=== PATIENT | male | born 1980 | race Hispanic/Latino ===

== ENCOUNTER 2021-10-22 13:48 | Emergency (ER) | payer MEDICARE ==
[~2021-10-22] VITALS: Ht 157.5 cm; Wt 54.4 kg
[2021-10-22 14:17] LABS: BASOPHILS % (AUTO) 0.4 % (0.0-5.0); HEMATOCRIT 32.4 % (42-54); LYMPHOCYTES % (AUTO) 21.7 % (21.0-51.0); MEAN CORPUSCULAR HEMOGLOBIN 24.5 pg (27.0-33.0); MEAN CORPUSCULAR HGB CONC 33.3 g/dL (32.0-36.0); MEAN CORPUSCULAR VOLUME 73.6 fL (79-99); MONOCYTES % (AUTO) 12.8 % (3.0-13.0); NEUTROPHILS % (AUTO) 64.7 % (40.0-77.0); PLATELET COUNT (AUTO) 219 K/uL (130-400); RED CELL DISTRIBUTION WIDTH 13.1 % (11.0-15.5); WHITE BLOOD COUNT (AUTO) 2.3 K/uL (4.8-10.8)
[2021-10-22 14:35] LABS: ALBUMIN 3.2 g/dL (3.5-5.0); BILIRUBIN,TOTAL 0.5 mg/dL (0.2-1.0); CREATININE 0.9 mg/dL (0.5-1.5); POTASSIUM 4.1 mmol/L (3.5-5.1); TOTAL PROTEIN, SERUM 7.2 g/dL (6.0-8.3)
[2021-10-22 14:58] LABS: BAND NEUTROPHILS % (MANUAL) 2 % (0-2); LYMPHOCYTES % (MANUAL) 17 % (22-44); MAN.DIFF COMMENT-IMPRESSION MANUAL DIFFERENTIAL; MONOCYTES % (MANUAL) 12 % (2-9); PLATELET MORPHOLOGY COMMENT ADEQUATE; REACTIVE LYMPHOCYTES 1 % (0-0); SEGMENTED NEUTROPHILS % 68 % (40-70)
[2021-10-22] MEDS ORDERED: INSULIN HUMULIN R 100 UNIT/ML 3ML IV ONE (15:00)
[2021-10-22] MEDS ORDERED: 0.9%NACL 1000ML 1,000 ML IV ONE (15:00)
[2021-10-22 15:17] LABS: APPEARANCE,URINE Clear (CLEAR); BILIRUBIN,URINE Negative (NEGATIVE); COLOR,URINE Yellow (YELLOW); GLUCOSE, URINE (UA) >=1000 mg/dL (NEGATIVE); KETONES,URINE 15 mg/dL (NEGATIVE); LEUKOCYTE ESTERASE ,URINE Negative (NEGATIVE); NITRATE,URINE Negative (NEGATIVE); OCCULT BLOOD,URINE Moderate (NEGATIVE); PROTEIN,URINE POS 1+ mg/dL (NEGATIVE); UROBILINOGEN,URINE 0.2 mg/dL (0.2-1.0)
[2021-10-22 15:24] LABS: AMPHET/METH SCREEN,URINE NEGATIVE (NEGATIVE); BARBITURATE SCREEN, URINE NEGATIVE (NEGATIVE); BENZODIAZEPINES SCREEN,URINE NEGATIVE (NEGATIVE); CANNABINOID SCREEN,URINE NEGATIVE (NEGATIVE); COCAINE SCREEN,URINE POSITIVE (NEGATIVE); OPIATE SCREEN,URINE NEGATIVE (NEGATIVE); PHENCYCLIDINE SCREEN,URINE NEGATIVE (NEGATIVE)
[2021-10-22] MEDS ORDERED: LORAZEPAM 2 MG/ML 1 ML VIAL IVP ONE (15:30)
[2021-10-22 15:35] VITALS: BP 152/96
[2021-10-22 15:56] LABS: BACTERIA,URINE None Seen /HPF (None Seen); RBC,URINE None Seen /HPF (0-1); SQUAMOUS EPITHELIAL CELL,UR None Seen /HPF (0-2); WBC,URINE 0-1 /HPF (0-1)
== END 2021-10-22 16:26 | disposition home or self-care (01) ==
LOC: EDH 13:48
DX: B34.9 Viral infection, unspecified (principal); D64.9 Anemia, unspecified; E86.0 Dehydration; I95.1 Orthostatic hypotension; F14.10 Cocaine abuse, uncomplicated; E11.9 Type 2 diabetes mellitus without complications; F31.9 Bipolar disorder, unspecified; F43.10 Post-traumatic stress disorder, unspecified
CPT/HCPCS: 36415; 71045; 80053; 80305; 81001; 82010; 82948; 83605; 84484 ×2; 85025; 96361; 96374; 96375; 99284; J1815; J2060; J7030

== ENCOUNTER 2021-10-24 16:34 | Emergency (ER) | payer MEDICARE ==
[~2021-10-24] VITALS: Ht 160 cm; Wt 54.4 kg
[2021-10-24 16:35] VITALS: BP 129/89
== END 2021-10-24 18:54 | disposition left against medical advice (07) ==
LOC: EDH 16:34
DX: R07.89 Other chest pain (principal); Z53.21 Procedure and treatment not carried out due to patient leaving prior to being seen by health care provider
CPT/HCPCS: 93005

== ENCOUNTER 2021-10-25 16:10 | Emergency (ER) | payer MEDICARE ==
[2021-10-25] MEDS ORDERED: PANTOPRAZOLE 40 MG/VIAL IVP ONE (17:00)
[2021-10-25 17:28] LABS: BASOPHILS % (AUTO) 0.6 % (0.0-5.0); EOSINOPHILS % (AUTO) 0.6 % (0.0-8.0); HEMATOCRIT 35.5 % (42-54); LYMPHOCYTES % (AUTO) 40.5 % (21.0-51.0); MEAN CORPUSCULAR HEMOGLOBIN 24.5 pg (27.0-33.0); MEAN CORPUSCULAR HGB CONC 34.4 g/dL (32.0-36.0); MEAN CORPUSCULAR VOLUME 71.3 fL (79-99); PLATELET COUNT (AUTO) 230 K/uL (130-400); RED BLOOD CELL COUNT(AUTO) 4.98 MIL/uL (4.50-6.20); RED CELL DISTRIBUTION WIDTH 12.7 % (11.0-15.5); WHITE BLOOD COUNT (AUTO) 3.4 K/uL (4.8-10.8)
[2021-10-25 17:39] LABS: CREATININE 0.7 mg/dL (0.5-1.5); POTASSIUM 3.6 mmol/L (3.5-5.1)
[2021-10-25 17:44] VITALS: BP 156/94
[2021-10-25 18:00] LABS: ALBUMIN 3.1 g/dL (3.5-5.0); BILIRUBIN,TOTAL 0.6 mg/dL (0.2-1.0)
== END 2021-10-25 18:15 | disposition home or self-care (01) ==
LOC: EDH 16:10
DX: R07.89 Other chest pain (principal); B34.9 Viral infection, unspecified; E11.9 Type 2 diabetes mellitus without complications; I10 Essential (primary) hypertension; E03.9 Hypothyroidism, unspecified; F43.10 Post-traumatic stress disorder, unspecified
CPT/HCPCS: 36415; 80053; 84484; 85025; 93005; 96374; 99284; C9113

== ENCOUNTER 2022-11-28 09:43 | Emergency (ER) | payer MEDICARE ==
[~2022-11-28] VITALS: Ht 157.5 cm; Wt 43.5 kg
[2022-11-28 09:58] VITALS: BP 154/94
[2022-11-28 10:14] LABS: BASOPHILS % (AUTO) 0.2 % (0.0-5.0); EOSINOPHILS % (AUTO) 1.5 % (0.0-8.0); HEMATOCRIT 21.3 % (42-54); LYMPHOCYTES % (AUTO) 8.9 % (21.0-51.0); MEAN CORPUSCULAR HEMOGLOBIN 23.5 pg (27.0-33.0); MEAN CORPUSCULAR HGB CONC 31.5 g/dL (32.0-36.0); MEAN CORPUSCULAR VOLUME 74.7 fL (79-99); MONOCYTES % (AUTO) 3.8 % (3.0-13.0); PLATELET COUNT (AUTO) 280 K/uL (130-400); RED BLOOD CELL COUNT(AUTO) 2.85 MIL/uL (4.50-6.20); WHITE BLOOD COUNT (AUTO) 5.3 K/uL (4.8-10.8)
[2022-11-28 10:18] LABS: APPEARANCE,URINE CLEAR (CLEAR); BILIRUBIN,URINE NEGATIVE (NEGATIVE); COLOR,URINE LIGHT-YELLOW (YELLOW); GLUCOSE, URINE (UA) 200 mg/dL (NEGATIVE); KETONES,URINE NEGATIVE (NEGATIVE); LEUKOCYTE ESTERASE ,URINE 250 Leu/uL (NEGATIVE); NITRATE,URINE NEGATIVE (NEGATIVE); OCCULT BLOOD,URINE LARGE (NEGATIVE); PH,URINE 6.5 (5.0-8.0); PROTEIN,URINE 50 mg/dL (NEGATIVE); UROBILINOGEN,URINE 0.2 mg/dL (0.2-1.0)
[2022-11-28 10:26] LABS: MUCUS,URINE RARE LPF (None Seen); RBC,URINE 26-50 /HPF (0-1); SQUAMOUS EPITHELIAL CELL,UR RARE /HPF (0-2)
[2022-11-28] MEDS ORDERED: MACR100 PO (10:26)
[2022-11-28] MEDS ORDERED: CEFTRIAXONE 1G VIAL ONE (10:28)
[2022-11-28] MEDS ORDERED: CEFTRIAXONE 1G VIAL IM ONE (10:30)
[2022-11-28 10:41] LABS: ALANINE AMINOTRANSFERASE 17 U/L (12-78); ALBUMIN 2.3 g/dL (3.5-5.0); ASPARTATE AMINOTRANSFERASE 14 U/L (10-37); CARBON DIOXIDE 27 mmol/L (21-32); CHLORIDE 101 mmol/L (101-111); GLOMERULAR FILTR. RATE CALC 96 mL/min (>90); GLUCOSE,RANDOM 207 mg/dL (70-105); POTASSIUM 4.2 mmol/L (3.5-5.1); SODIUM SERUM 135 mmol/L (136-145); TOTAL PROTEIN, SERUM 7.1 g/dL (6.0-8.3); UREA NITROGEN, BLOOD 23 mg/dL (7-18)
[2022-11-28 10:47] LABS: LIPASE < 50 U/L (114-286)
== END 2022-11-28 11:14 | disposition home or self-care (01) ==
LOC: EDH 09:43
DX: E11.649 Type 2 diabetes mellitus with hypoglycemia without coma (principal); N39.0 Urinary tract infection, site not specified; D64.9 Anemia, unspecified; R31.29 Other microscopic hematuria; E78.00 Pure hypercholesterolemia, unspecified; I10 Essential (primary) hypertension; Z79.899 Other long term (current) drug therapy
CPT/HCPCS: 99283; 80053; 83690; 85025; 87088; 81001; 36415; 96372; J0696

== ENCOUNTER 2023-01-01 10:35 | Inpatient (IN) | payer MEDICARE ==
[~2023-01-01] VITALS: Ht 157.5 cm; Wt 47.2 kg
[~2023-01-01 10:35] MED LIST: MACR100 PO
[2023-01-01] MEDS ORDERED: MORPHINE 4 MG SYG IVP ONE (11:00)
[2023-01-01] MEDS ORDERED: LACTATED RINGERS 1000ML 1,000 ML IV ONE (11:00)
[2023-01-01] MEDS ORDERED: ONDANSETRON 4MG INJ IVP ONE (11:00)
[2023-01-01 12:23] LABS: BASOPHILS % (AUTO) 0.5 % (0.0-5.0); EOSINOPHILS % (AUTO) 0.6 % (0.0-8.0); HEMATOCRIT 29.1 % (42-54); LYMPHOCYTES % (AUTO) 17.3 % (21.0-51.0); MEAN CORPUSCULAR HEMOGLOBIN 23.3 pg (27.0-33.0); MEAN CORPUSCULAR HGB CONC 33.3 g/dL (32.0-36.0); MONOCYTES % (AUTO) 6.9 % (3.0-13.0); NEUTROPHILS % (AUTO) 74.4 % (40.0-77.0); PLATELET COUNT (AUTO) 309 K/uL (130-400); RED BLOOD CELL COUNT(AUTO) 4.16 MIL/uL (4.50-6.20); RED CELL DISTRIBUTION WIDTH 14.6 % (11.0-15.5); WHITE BLOOD COUNT (AUTO) 6.4 K/uL (4.8-10.8)
[2023-01-01] MEDS ORDERED: IOHEXOL-350 75 ML VIAL IV ONE (12:35)
[2023-01-01 12:39] LABS: BILIRUBIN,URINE NEGATIVE (NEGATIVE); COLOR,URINE LIGHT-YELLOW (YELLOW); GLUCOSE, URINE (UA) >=1000 mg/dL (NEGATIVE); OCCULT BLOOD,URINE LARGE (NEGATIVE); PH,URINE 5.5 (5.0-8.0); PROTEIN,URINE 100 mg/dL (NEGATIVE)
[2023-01-01 12:40] LABS: APPEARANCE,URINE HAZY (CLEAR); KETONES,URINE NEGATIVE (NEGATIVE); LEUKOCYTE ESTERASE ,URINE 25 Leu/uL (NEGATIVE); NITRATE,URINE NEGATIVE (NEGATIVE); UROBILINOGEN,URINE 0.2 mg/dL (0.2-1.0)
[2023-01-01 12:42] LABS: MUCUS,URINE RARE LPF (None Seen); RBC,URINE 26-50 /HPF (0-1); SQUAMOUS EPITHELIAL CELL,UR RARE /HPF (0-2)
[2023-01-01 12:45] LABS: ALANINE AMINOTRANSFERASE 13 U/L (12-78); ALBUMIN 3.4 g/dL (3.5-5.0); ASPARTATE AMINOTRANSFERASE 14 U/L (10-37); CARBON DIOXIDE 25 mmol/L (21-32); CREATININE 2.2 mg/dL (0.5-1.5); GLOMERULAR FILTR. RATE CALC 37 mL/min (>90); POTASSIUM 4.1 mmol/L (3.5-5.1); SODIUM SERUM 129 mmol/L (136-145); TOTAL PROTEIN, SERUM 8.5 g/dL (6.0-8.3); UREA NITROGEN, BLOOD 64 mg/dL (7-18)
[2023-01-01 12:46] LABS: LIPASE < 50 U/L (114-286)
[2023-01-01 12:47] LABS: CHLORIDE 89 mmol/L (101-111); GLUCOSE,RANDOM 401 mg/dL (70-105)
[2023-01-01] MEDS ORDERED: INSULIN HUMULIN R 100 UNIT/ML 3ML IV ONE (13:30)
[2023-01-01] MEDS ORDERED: 0.9%NACL 1000ML 1,000 ML IV ONE (13:30)
[2023-01-01] MEDS ORDERED: FOLIC ACID 5 MG/ML VIAL IV ONE (15:00)
[2023-01-01] MEDS ORDERED: THIAMINE HCL 100 MG/ML 2ML VIAL IVP ONE (15:00)
[2023-01-01 15:22] LABS: CRP QUANTITATIVE 21.5 mg/L (0.00-9.0)
[2023-01-01 15:24] LABS: INR 0.94 (0.85-1.15)
[2023-01-01 15:25] LABS: PARTIAL THROMBOPLASTIN TIME 26.3 SEC (26.3-35.5)
[2023-01-01] MEDS ORDERED: ACETAMINOPHEN 325 MG TAB PO PRN (15:30)
[2023-01-01 15:36] LABS: HEMOGLOBIN A1C 9.5 % (4.0-6.0)
[2023-01-01 15:54] LABS: AMPHET/METH SCREEN,URINE NEGATIVE (NEGATIVE); BARBITURATE SCREEN, URINE NEGATIVE (NEGATIVE); BENZODIAZEPINES SCREEN,URINE NEGATIVE (NEGATIVE); CANNABINOID SCREEN,URINE NEGATIVE (NEGATIVE); COCAINE SCREEN,URINE POSITIVE (NEGATIVE); OPIATE SCREEN,URINE NEGATIVE (NEGATIVE); PHENCYCLIDINE SCREEN,URINE NEGATIVE (NEGATIVE)
[2023-01-01 16:09] LABS: % IRON SATURATION 10.1 % (30-44)
[2023-01-01] MEDS: INSULIN HUMULIN R 100 UNIT/ML 3ML SQ SCH ×2 (16:30→22:11)
[2023-01-01] MEDS: PANTOPRAZOLE 40 MG/VIAL IVP SCH (16:31)
[2023-01-01] MEDS: ZOSYN 3.375GM +NS 50ML IVPB SCH ×2 (16:31→22:06)
[2023-01-01] MEDS: THIAMINE HCL 100 MG, FOLIC ACID 1 MG, M.V.I. IV [ADULT] 10 ML in 0.9%NACL 1000ML 1,000 ML IV SCH (16:31)
[2023-01-01] MEDS ORDERED: HYDRALAZINE 20MG/ML VIAL IV PRN (18:00)
[2023-01-01] MEDS: AMLODIPINE 5 MG TAB PO SCH (22:06)
[2023-01-02] VITALS (9 sets, daily range): BP systolic 136–160; BP diastolic 74–98; PULSE 86–100; RESP 17–20; O2SAT 97–98
[2023-01-02] MEDS: ONDANSETRON 4MG INJ IVP PRN ×2 (05:26→20:20)
[2023-01-02] MEDS: ZOSYN 3.375GM +NS 50ML IVPB SCH ×3 (06:16→22:59)
[2023-01-02 06:35] LABS: BASOPHILS % (AUTO) 0.5 % (0.0-5.0); EOSINOPHILS % (AUTO) 1.2 % (0.0-8.0); HEMATOCRIT 27.1 % (42-54); LYMPHOCYTES % (AUTO) 22.9 % (21.0-51.0); MEAN CORPUSCULAR HEMOGLOBIN 23.7 pg (27.0-33.0); MEAN CORPUSCULAR HGB CONC 32.8 g/dL (32.0-36.0); MEAN CORPUSCULAR VOLUME 72.3 fL (79-99); MONOCYTES % (AUTO) 8.9 % (3.0-13.0); NEUTROPHILS % (AUTO) 66.2 % (40.0-77.0); PLATELET COUNT (AUTO) 249 K/uL (130-400); RED BLOOD CELL COUNT(AUTO) 3.75 MIL/uL (4.50-6.20); RED CELL DISTRIBUTION WIDTH 14.8 % (11.0-15.5); WHITE BLOOD COUNT (AUTO) 5.9 K/uL (4.8-10.8)
[2023-01-02] MEDS: INSULIN HUMULIN R 100 UNIT/ML 3ML SQ SCH ×4 (06:37→20:22)
[2023-01-02 06:56] LABS: ALBUMIN 2.9 g/dL (3.5-5.0); CREATININE 1.3 mg/dL (0.5-1.5); CRP QUANTITATIVE 19.2 mg/L (0.00-9.0); POTASSIUM 3.8 mmol/L (3.5-5.1); TOTAL PROTEIN, SERUM 7.5 g/dL (6.0-8.3)
[2023-01-02] MEDS: INSULIN GLARGINE 100 UNITS/ML 10 ML VIAL SQ SCH (09:47)
[2023-01-02] MEDS: PANTOPRAZOLE 40 MG/VIAL IVP SCH (15:32)
[2023-01-02] MEDS: METHIMAZOLE 10 MG TAB PO SCH (17:13)
[2023-01-02] MEDS: THIAMINE HCL 100 MG, FOLIC ACID 1 MG, M.V.I. IV [ADULT] 10 ML in 0.9%NACL 1000ML 1,000 ML IV SCH (17:14)
[2023-01-02] MEDS: AMLODIPINE 5 MG TAB PO SCH (20:20)
[2023-01-03 04:00] VITALS: BP 148/91; PULSE 94; RESP 19
[2023-01-03] MEDS: ZOSYN 3.375GM +NS 50ML IVPB SCH ×3 (06:08→22:38)
[2023-01-03] MEDS: ONDANSETRON 4MG INJ IVP PRN (06:10)
[2023-01-03] MEDS: INSULIN HUMULIN R 100 UNIT/ML 3ML SQ SCH ×4 (06:13→20:43)
[2023-01-03 07:40] VITALS: O2SAT 98
[2023-01-03 08:00] VITALS: BP 160/100; PULSE 100; RESP 20
[2023-01-03] MEDS: INSULIN GLARGINE 100 UNITS/ML 10 ML VIAL SQ SCH (08:45)
[2023-01-03 11:45] VITALS: BP 148/98; PULSE 98; RESP 20
[2023-01-03] MEDS: PANTOPRAZOLE 40 MG/VIAL IVP SCH (15:34)
[2023-01-03] MEDS: METHIMAZOLE 10 MG TAB PO SCH (15:56)
[2023-01-03 16:00] VITALS: BP 164/105; PULSE 96; RESP 20
[2023-01-03] MEDS: THIAMINE HCL 100 MG, FOLIC ACID 1 MG, M.V.I. IV [ADULT] 10 ML in 0.9%NACL 1000ML 1,000 ML IV SCH (16:19)
[2023-01-03 20:00] VITALS: BP 161/93; PULSE 99; RESP 20; O2SAT 99
[2023-01-03] MEDS ORDERED: METHIMAZOLE 10 MG TAB PO SCH (20:00)
[2023-01-03] MEDS: AMLODIPINE 5 MG TAB PO SCH (20:40)
[2023-01-04] VITALS: BP 145/82; PULSE 105; RESP 20
[2023-01-04 04:00] VITALS: BP 143/90; PULSE 90; RESP 20
[2023-01-04] MEDS: ZOSYN 3.375GM +NS 50ML IVPB SCH (06:24)
[2023-01-04] MEDS: INSULIN HUMULIN R 100 UNIT/ML 3ML SQ SCH ×4 (07:30→12:17)
[2023-01-04 07:48] VITALS: BP 153/95; PULSE 101; RESP 17
[2023-01-04 08:10] VITALS: O2SAT 99
[2023-01-04] MEDS: INSULIN GLARGINE 100 UNITS/ML 10 ML VIAL SQ SCH (08:33)
[2023-01-04 11:22] VITALS: BP 159/96; PULSE 91; RESP 18
[2023-01-04] MEDS: PANTOPRAZOLE 40 MG/VIAL IVP SCH (15:00)
== END 2023-01-04 15:20 | DRG 637 ==
LOC: EDH 10:35 → EDHIP 14:58 → 3AH 01-02 00:53 → 3BH 01-02 07:45
PROVIDERS: ADMIT Internal Medicine; ATTEND Internal Medicine
DX: E11.65 Type 2 diabetes mellitus with hyperglycemia (principal); J18.9 Pneumonia, unspecified organism; N17.9 Acute kidney failure, unspecified; E86.0 Dehydration; E86.1 Hypovolemia; I10 Essential (primary) hypertension; D64.9 Anemia, unspecified; Z20.822 Contact with and (suspected) exposure to COVID-19; E78.5 Hyperlipidemia, unspecified; Z60.8 Other problems related to social environment; R59.0 Localized enlarged lymph nodes; E05.20 Thyrotoxicosis with toxic multinodular goiter without thyrotoxic crisis or storm; F14.90 Cocaine use, unspecified, uncomplicated; E03.9 Hypothyroidism, unspecified; F43.10 Post-traumatic stress disorder, unspecified; Z59.01 Sheltered homelessness; Z79.4 Long term (current) use of insulin; Z79.84 Long term (current) use of oral hypoglycemic drugs; Z89.429 Acquired absence of other toe(s), unspecified side; Z79.899 Other long term (current) drug therapy
CPT/HCPCS: 36415; 71045; 74176; 76536; 80053; 80305; 81001; 82010; 82550; 82607; 82728; 82746; 82948; 83036; 83540; 83550; 83605; 83690; 83735; 84145; 84439; 84443; 84445; 84481; 85025; 85610; 85730; 86140; 86376; 86738; 87088; 87449; 87635; 87804; C9113; G0378; J1815; J2270; J2405; J2543; J3411; J3490; J7030; J7120; Q9967

== ENCOUNTER 2023-12-10 04:56 | Emergency (ER) | payer MEDICARE ==
[~2023-12-10] VITALS: Ht 157.5 cm; Wt 57.6 kg
[2023-12-10] MEDS: LACTATED RINGERS 1000ML 1,000 ML IV ONE (05:29)
[2023-12-10] MEDS: PANTOPRAZOLE 40 MG/VIAL IVP ONE (05:29)
[2023-12-10] MEDS: ONDANSETRON 4MG INJ IVP ONE (05:29)
[2023-12-10 05:54] LABS: BASOPHILS # (AUTO) 0.02 K/uL (0.00-0.20); BASOPHILS % (AUTO) 0.3 % (0.0-5.0); EOSINOPHILS # (AUTO) 0.04 K/uL (0.00-0.70); EOSINOPHILS % (AUTO) 0.5 % (0.0-8.0); HEMATOCRIT 24.3 % (42-54); IMMATURE GRANULOCYTE ABSOLUTE 0.04 K/uL (0-1); LYMPHOCYTES # (AUTO) 1.1 K/uL (1.0-4.8); MEAN CORPUSCULAR HEMOGLOBIN 26.3 pg (27.0-33.0); MEAN CORPUSCULAR HGB CONC 34.2 g/dL (32.0-36.0); MEAN CORPUSCULAR VOLUME 77.1 fL (79-99); MONOCYTES # (AUTO) 0.6 K/uL (0.1-1.0); MONOCYTES % (AUTO) 7.8 % (3.0-13.0); NEUTROPHILS # (AUTO) 5.7 K/uL (1.8-7.7); NEUTROPHILS % (AUTO) 75.9 % (40.0-77.0); PLATELET COUNT (AUTO) 286 K/uL (130-400); RED BLOOD CELL COUNT(AUTO) 3.15 MIL/uL (4.50-6.20); RED CELL DISTRIBUTION WIDTH 12.6 % (11.0-15.5); WHITE BLOOD COUNT (AUTO) 7.5 K/uL (4.8-10.8)
[2023-12-10 06:14] LABS: CREATININE 1.1 mg/dL (0.5-1.3); POTASSIUM 3.6 mmol/L (3.5-5.1)
[2023-12-10 06:20] LABS: ALBUMIN 3.2 g/dL (3.5-5.0); BILIRUBIN,TOTAL 0.3 mg/dL (0.2-1.0); TOTAL PROTEIN, SERUM 7.1 g/dL (6.0-8.3)
[2023-12-10] MEDS ORDERED: PANT40TA55 PO (06:42)
[2023-12-10] MEDS ORDERED: LACT1CAP90 PO (06:42)
[2023-12-10] MEDS: LIDOCAINE HCL 2% VISCOUS 15 ML UDCUP PO ONE (06:50)
[2023-12-10] MEDS: MAG/ALUM/SIMETH 30 ML UDCUP PO ONE (06:50)
[2023-12-10 08:33] VITALS: BP 170/80; PULSE 91; RESP 16; O2SAT 98
== END 2023-12-10 09:04 | disposition home or self-care (01) ==
LOC: EDH 04:56
DX: A08.4 Viral intestinal infection, unspecified (principal); E11.9 Type 2 diabetes mellitus without complications; Z98.890 Other specified postprocedural states
CPT/HCPCS: 99285; 96374; 71045; 96361; 96375; 82550; 80053; 83690; 85025; 36415; 93005; J7120; J2405